=== PATIENT | male | born 1970 | race African-American/Black ===

== ENCOUNTER → 2016-08-18 | Outpatient (CLI) | payer OTHER ==
[2015-05-28 08:51] VITALS: BP 140/86
[~2016-08-18] MED LIST: LISI-334 PO; OMEP20CA5 PO
--- NOTE | 2016-08-18 09:28 | RAD ---
Indication abnormal thyroid function tests. Grayscale imaging was performed. Examination was targeted to the thyroid. No prior imaging of the thyroid is available. The right lobe of the thyroid appears normal and measures approximately 4.6 x 2.2 x 2.1 cm. No mass or nodule or significant heterogeneity is seen in the right lobe. The isthmus also appears normal. The left lobe of the thyroid measures 4.1 x 1.9 x 1.6 cm and also appears normal. IMPRESSION: Normal thyroid ultrasound
--- NOTE | 2016-08-18 10:07 | RAD ---
Radionuclide gastric emptying study, 08/18/2016: History: Full feeling for a year The study was performed utilizing a solid test meal radiolabeled with 2.2 mCi of technetium 99m sulfur colloid. The time to half emptying of the test meal from the patient's stomach was estimated at 177 minutes. A normal T1/2 is 60 minutes +/- 30 minutes. IMPRESSION: Moderately delayed gastric emptying.
== END | disposition home or self-care (01) ==
LOC: NM 07:28
PROVIDERS: ATTEND Family Medicine
DX: K30 Functional dyspepsia (principal); E05.90 Thyrotoxicosis, unspecified without thyrotoxic crisis or storm; R94.6 Abnormal results of thyroid function studies
CPT/HCPCS: 76536; 78264; A9541